=== PATIENT | male | born 2000 | race African-American/Black ===

== ENCOUNTER 2025-05-27 21:45 | Emergency (ER) | payer BC ==
[~2025-05-27] VITALS: Ht 172.7 cm; Wt 86.2 kg
[2025-05-27] MEDS ORDERED: CEPHALEXIN MONOHYDRATE 500 MG CAPSULE PO ONE (22:44)
[2025-05-27] MEDS: LIDOCAINE /MPF 1% VIAL 5 ML VIAL IJ ONE (22:46)
[2025-05-27] MEDS: CEPHALEXIN MONOHYDRATE 500 MG CAPSULE PO ONE (22:46)
[2025-05-27] MEDS ORDERED: CEPH500C2 PO (22:51)
[2025-05-27 23:01] VITALS: BP 130/80; TEMP 98.6; O2SAT 98
== END 2025-05-27 23:02 | disposition home or self-care (01) ==
LOC: ER 22:14
DX: S01.01XA Laceration without foreign body of scalp, initial encounter (principal); R51.9 Headache, unspecified; W22.09XA Striking against other stationary object, initial encounter; Y93.39 Activity, other involving climbing, rappelling and jumping off; Y92.89 Other specified places as the place of occurrence of the external cause; Y99.8 Other external cause status